=== PATIENT | male | born 1985 | race Caucasian/White ===

== ENCOUNTER 2018-02-04 18:14 | Emergency (ER) | payer OTHER ==
[~2018-02-04] VITALS: Ht 182.9 cm; Wt 104.3 kg
[2018-02-04] MEDS ORDERED: XARELTO10 MG (18:33)
[2018-02-04] MEDS ORDERED: TRAMADOL HCL50 MG (18:34)
== END 2018-02-04 21:30 | disposition home or self-care (01) ==
LOC: ER 18:14
DX: S83.19 Other subluxation and dislocation of knee (principal); X50.1XXS Overexertion from prolonged static or awkward postures, sequela; M12.561 Traumatic arthropathy, right knee

== ENCOUNTER → 2018-02-05 15:09 | Outpatient (CLI) | payer OTHER ==
[~2018-02-05 15:09] MED LIST: TRAMADOL HCL50 MG; XARELTO10 MG
== END | disposition home or self-care (01) ==
LOC: LAB 15:09 → RAD 15:09
DX: S83.106A Unspecified dislocation of unspecified knee, initial encounter (principal)

== ENCOUNTER 2018-02-08 12:20 | Outpatient (CLI) | payer OTHER | END 2018-02-08 12:35 | disposition home or self-care (01) | LOC: MRI 12:20 | DX: S83.194A Other dislocation of right knee, initial encounter (principal); M12.561 Traumatic arthropathy, right knee | CPT/HCPCS: 73723 ==

== ENCOUNTER 2022-12-17 11:38 | Emergency (ER) | payer OTHER ==
[~2022-12-17] VITALS: Ht 182.9 cm; Wt 102.1 kg
== END 2022-12-17 14:09 | disposition home or self-care (01) ==
LOC: ER 11:38
DX: J06.9 Acute upper respiratory infection, unspecified (principal)

== ENCOUNTER 2023-10-20 09:13 | Emergency (ER) | payer OTHER ==
[~2023-10-20] VITALS: Ht 182.9 cm; Wt 104.3 kg
[2023-10-20] MEDS ORDERED: HYDROCODONE/CHLORPHEN P-STIREX 5 ML ML PO STA (09:28)
[2023-10-20 10:17] LABS: HEMATOCRIT 42.4 % (39.0-48.0); HEMOGLOBIN 14.7 g/dL (13-16.00); MEAN CELL VOLUME 87.1 fL (80.0-100.00); MEAN CORPUSCULAR HEMOGLOBIN 30.2 pg (27.00-32.0); MEAN CORPUSCULAR HGB CONC 34.6 g/dl (32.0-36.0); RED BLOOD COUNT 4.86 M/uL (4.00-6.00); RED CELL DISTRIBUTION WIDTH 13.3 % (11.5-14.5)
[2023-10-20 10:46] LABS: PLATELET COUNT 312 K/uL (150-450)
== END 2023-10-20 10:57 | disposition home or self-care (01) ==
LOC: ER 09:14
PROVIDERS: General Practice
DX: J40 Bronchitis, not specified as acute or chronic (principal); Z20.822 Contact with and (suspected) exposure to COVID-19